=== PATIENT | female | born 1995 | race Caucasian/White ===

== ENCOUNTER 2017-04-24 14:40 | Emergency (ER) | payer OTHER ==
[~2017-04-24] VITALS: Ht 162.6 cm; Wt 97.9 kg
[2017-04-24 14:42] VITALS: Ht 162.6 cm; Wt 97.9 kg
[2017-04-24 17:00] LABS: BASOPHILS % 0.3 % (0.0-2.0); EOSINOPHILS # 0.1 10^3/ul (0.0-0.5); EOSINOPHILS % 1.4 % (0.0-7.0); HEMATOCRIT 40.1 % (37.0-47.0); HEMOGLOBIN 13.5 g/dl (12.0-16.0); LYMPHOCYTES % 13.5 % (15.0-51.0); MEAN CORPUSCULAR HEMOGLOBIN 28.4 pg (29.0-33.0); MEAN CORPUSCULAR HGB CONC 33.7 g/dl (32.0-37.0); MEAN CORPUSCULAR VOLUME 84.4 fl (82.0-101.0); MEAN PLATELET VOLUME 11.4 fl (7.4-10.4); MONOCYTE # 0.5 10^3/ul (0.3-0.9); MONOCYTES % 7.3 % (0.0-11.0); NEUTROPHIL # 5.5 10^3/ul (1.6-7.5); NEUTROPHILS % 77.2 % (39.0-77.0); PLATELET COUNT 173 10^3/UL (140-415); RED BLOOD COUNT 4.75 10^6/ul (4.20-5.40); RED CELL DISTRIBUTION WIDTH 14.6 % (11.5-14.5); WHITE BLOOD COUNT 7.2 10^3/ul (4.8-10.8)
[2017-04-24 17:05] LABS: ADD UMIC YES; UR ASCORBIC ACID NEGATIVE (NEGATIVE); UR BILIRUBIN (Dip) NEGATIVE (NEGATIVE); UR BLOOD (Dip) 3+ mg/dL (NEGATIVE); UR CLARITY CLEAR (CLEAR); UR COLOR YELLOW (YELLOW); UR GLUCOSE (Dip) NEGATIVE (NEGATIVE); UR KETONES (Dip) NEGATIVE (NEGATIVE); UR LEUKOCYTE ESTERASE (Dip) NEGATIVE Leu/ul (NEGATIVE); UR NITRITE (Dip) NEGATIVE (NEGATIVE); UR RBC > 182 /HPF (0-5); UR SPECIFIC GRAVITY (Dip) 1.017 (1.003-1.030); UR TOTAL PROTEIN (Dip) NEGATIVE (NEGATIVE); UR UROBILINOGEN (Dip) NEGATIVE (NEGATIVE)
[2017-04-24 17:21] LABS: ALBUMIN 4.1 g/dl (3.3-4.9); ALBUMIN/GLOBULIN RATIO 1.17; BILIRUBIN,INDIRECT 0.9 mg/dl (0-1.1); BILIRUBIN,TOTAL 0.9 mg/dl (0.2-1.3); CREATININE 0.68 mg/dl (0.44-1.00); TOTAL PROTEIN 7.6 g/dl (6.1-8.1)
--- NOTE | 2017-04-24 19:05 | RADRPT ---
PROCEDURE: CT of the abdomen and pelvis without contrast CLINICAL INDICATION: Abdominal pain TECHNIQUE: Spiral CT images through the abdomen and pelvis without the use of contrast. The admin istered radiation dose is CTDI 17.1 mGy and DLP 984.6 mGy*cm. Coronal and sagittal reformatted imag es were submitted. One or more of the following dose reduction techniques were used: automated expo sure control, adjustment of the mA and/or kV according to patient size, or use of iterative reconstr uction technique. DICOM images are available. COMPARISON: None FINDINGS: Lack of oral and intravenous contrast and streak artifact somewhat limits evaluation. The lung ba ses are clear. No pleural effusion is seen. The heart is normal in size. The liver, spleen, adrenal glands and pancreas are normal in appearance. There is no evidence of cho lelithiasis or biliary ductal dilatation. The kidneys are normal in size and contour. There is no ev idence of hydronephrosis or nephrolithiasis. The aorta is normal in caliber. . There is no evidenc e for bowel obstruction, free air, free fluid or abscess. The appendix is normal in appearance. Mu ltiple mildly enlarged mesenteric lymph nodes are seen. Mild stranding of the omentum on the right a nd a small amount of pelvic free fluid are seen. The uterus is anteverted. There is evidence of a le ft ovarian cystic teratoma measuring 4 x 3.3 cm. The bladder is decompressed. The osseous structure s are intact. Bilateral sacroiliac joints are narrowed and sclerotic.. IMPRESSION: Mesenteric lymphadenopathy and mild soft tissue infiltration of the right omentum. The etiology i s uncertain. Follow-up contrast enhanced exam is recommended. 4 4 cm left ovarian cystic teratoma. Mild pelvic free fluid. Ultrasound is recommended. RPTAT: HCNS Physician Jose Guadalupe Date Time Electronically viewed and signed by Physician Jose Guadalupe on 04/24/2017 19:05 /
--- NOTE | 2017-04-24 20:33 | RADRPT ---
PROCEDURE: US Non-OB Pelvis. CLINICAL INDICATION: Pelvic pain. TECHNIQUE: Multiple sonographic images of the pelvis were obtained utilizing a transabdominal and endovaginal technique. The images were reviewed on a PACS workstation. COMPARISON: CT of the abdomen and pelvis dated 04/24/2017. FINDINGS: The uterus is visualized and measures 9.5 x 5.1 x 7.5 cm. The endometrial echo complex is normal and measures 4 mm. The right ovary is not visualized. The left ovary measures 5.2 x 2.2 x 2.6 cm. There is a 4.6 x 3.5 x 3.9 cm complex structure in the left ovary, consistent with a teratoma. Blood flow is demonstrate d to the left ovary. No adnexal masses are noted. There is no evidence of free fluid. IMPRESSION: 1. 4.6 cm left ovarian teratoma. 2. Normal appearance of uterus. 3. The right ovary is not visualized. RPTAT: HTAR .Edouard Mosley MD, Date Time Electronically viewed and signed by .Edouard Mosley MD, MD on 04/24/2017 20:33 .R/
[2017-04-24] MEDS ORDERED: NAPR-260 PO (20:56)
--- NOTE | 2017-04-24 21:12 | ERD ---
ER Documentation Chief Complaint Chief Complaint AP X 6 WEEKS, INTERMITTENT HPI 21-year-old female complaining of abdominal pain 6 weeks. Patient states the pain is in the epigastric region. It comes and goes over the last 6 weeks and does not know what causes it resolves it. Describes it as a sharp type pain. Has normal bowel movements. Has normal urination. Denies vomiting. Denies chest pain. Denies shortness of breath. Has taken ibuprofen with alleviation of symptoms. Last normal menstrual period was 04/21/2017 ROS All systems reviewed and are negative except as per history of present illness. Medications Home Meds Active Scripts Naproxen* (Naprosyn*) 500 Mg Tablet, 500 MG PO BID Y for PAIN AND/OR INFLAMMATION, #30 TAB Prov:PRASHANTH GUERRA PA-C 04/24/17 Allergies Allergies: Coded Allergies: No Known Allergy (Unverified , 04/24/17) PMhx/Soc Medical and Surgical Hx: pt denies Medical Hx, pt denies Surgical Hx Hx Alcohol Use: No Hx Substance Use: No Hx Tobacco Use: No Smoking Status: Never smoker Physical Exam Vitals Vital Signs Date Time Temp Pulse Resp B/P Pulse Ox O2 Delivery O2 Flow Rate FiO2 04/24/17 14:42 98.1 78 18 115/56 99 Physical Exam GENERAL: The patient is well-appearing, well-nourished, in no acute distress HEENT: Atraumatic. Conjunctivae are pink. Pupils equal, round, and reactive to light. There is no scleral icterus. Tympanic membranes clear bilaterally. Oropharynx clear. No nystagmus or photophobia. NECK: C-spine is soft and supple. There is no meningismus. There is no cervical lymphadenopathy. CHEST: Clear to auscultation bilaterally. There are no rales, wheezes or rhonchi. HEART: Regular rate and rhythm. No murmurs, clicks, rubs or gallops. No S3 or S4. ABDOMEN: Normoactive bowel sounds. No distention. Mild tenderness palpation mid abdomen. No rebound tenderness. No rigidity. BACK: No midline or flank tenderness. Result Diagram: 04/24/17 1650 04/24/17 1650 Results 24 hrs Laboratory Tests Test 04/24/17 16:50 White Blood Count 7.210^3/ul Red Blood Count 4.7510^6/ul Hemoglobin 13.5g/dl Hematocrit 40.1% Mean Corpuscular Volume 84.4fl Mean Corpuscular Hemoglobin 28.4pg Mean Corpuscular Hemoglobin Concent 33.7g/dl Red Cell Distribution Width 14.6% Platelet Count 65631^3/UL Mean Platelet Volume 11.4fl Neutrophils % 77.2% Lymphocytes % 13.5% Monocytes % 7.3% Eosinophils % 1.4% Basophils % 0.3% Nucleated Red Blood Cells % 0.0/100WBC Neutrophils # 5.510^3/ul Lymphocytes # 1.010^3/ul Monocytes # 0.510^3/ul Eosinophils # 0.110^3/ul Basophils # 0.010^3/ul Nucleated Red Blood Cells # 0.010^3/ul Urine Color YELLOW Urine Clarity CLEAR Urine pH 5.0 Urine Specific [place] 1.017 Urine Ketones NEGATIVEmg/dL Urine Nitrite NEGATIVEmg/dL Urine Bilirubin NEGATIVEmg/dL Urine Urobilinogen NEGATIVEmg/dL Urine Leukocyte Esterase NEGATIVELeu/ul Urine Microscopic RBC > 182/HPF Urine Microscopic WBC 0/HPF Urine Hemoglobin 3+mg/dL Urine Glucose NEGATIVEmg/dL Urine Total Protein NEGATIVEmg/dl Sodium Level 142mmol/L Potassium Level 4.0mmol/L Chloride Level 104mmol/L Carbon Dioxide Level 27mmol/L Anion Gap 15 Blood Urea Nitrogen 16mg/dl Creatinine 0.68mg/dl Glucose Level 94mg/dl Calcium Level 9.0mg/dl Total Bilirubin 0.9mg/dl Direct Bilirubin 0.00mg/dl Indirect Bilirubin 0.9mg/dl Aspartate Amino Transf (AST/SGOT) 26IU/L Alanine Aminotransferase (ALT/SGPT) 42IU/L Alkaline Phosphatase 71IU/L Total Protein 7.6g/dl Albumin 4.1g/dl Globulin 3.50g/dl Albumin/Globulin Ratio 1.17 Lipase 36U/L Serum HCG, Qualitative NEGATIVE Procedures/MDM DIAGNOSTIC IMAGING REPORT Patient: ANNE AUGUSTIN : 1995 Age: 21 Sex: F MR #: [id number] DOS: 04/24/171915 Ordering MD: RODOLFO GUERRA PA-C Location: [facility] Room/Bed: PROCEDURE: US Non-OB Pelvis. CLINICAL INDICATION: Pelvic pain. TECHNIQUE: Multiple sonographic images of the pelvis were obtained utilizing a transabdominal and endovaginal technique. The images were reviewed on a PACS workstation. COMPARISON: CT of the abdomen and pelvis dated 04/24/2017. FINDINGS: The uterus is visualized and measures 9.5 x 5.1 x 7.5 cm. The endometrial echo complex is normal and measures 4 mm. The right ovary is not visualized. The left ovary measures 5.2 x 2.2 x 2.6 cm. There is a 4.6 x 3.5 x 3.9 cm complex structure in the left ovary, consistent with a teratoma. Blood flow is demonstrated to the left ovary. No adnexal masses are noted. There is no evidence of free fluid. IMPRESSION: 1. 4.6 cm left ovarian teratoma. 2. Normal appearance of uterus. 3. The right ovary is not visualized. DIAGNOSTIC IMAGING REPORT Patient: ANNE AUGUSTIN : 1995 Age: 21 Sex: F MR #: [id number] DOS: 04/24/17 1631 Ordering MD: RODOLFO GUERRA PA-C Location: [facility] Room/Bed: PROCEDURE: CT of the abdomen and pelvis without contrast CLINICAL INDICATION: Abdominal pain TECHNIQUE: Spiral CT images through the abdomen and pelvis without the use of contrast. The administered radiation dose is CTDI 17.1 mGy and DLP 984.6 mGy* cm. Coronal and sagittal reformatted images were submitted. One or more of the following dose reduction techniques were used: automated exposure control, adjustment of the mA and/or kV according to patient size, or use of iterative reconstruction technique. DICOM images are available. COMPARISON: None FINDINGS: Lack of oral and intravenous contrast and streak artifact somewhat limits evaluation. The lung bases are clear. No pleural effusion is seen. The heart is normal in size. The liver, spleen, adrenal glands and pancreas are normal in appearance. There is no evidence of cholelithiasis or biliary ductal dilatation. The kidneys are normal in size and contour. There is no evidence of hydronephrosis or nephrolithiasis. The aorta is normal in caliber. . There is no evidence for bowel obstruction, free air, free fluid or abscess. The appendix is normal in appearance. Multiple mildly enlarged mesenteric lymph nodes are seen. Mild stranding of the omentum on the right and a small amount of pelvic free fluid are seen. The uterus is anteverted. There is evidence of a left ovarian cystic teratoma measuring 4 x 3.3 cm. The bladder is decompressed. The osseous structures are intact. Bilateral sacroiliac joints are narrowed and sclerotic.. IMPRESSION: Mesenteric lymphadenopathy and mild soft tissue infiltration of the right omentum. The etiology is uncertain. Follow-up contrast enhanced exam is recommended. 4 4 cm left ovarian cystic teratoma. Mild pelvic free fluid. Ultrasound is recommended. MDM: 21-year-old female complaining of abdominal pain. I have low suspicion for choledocholithiasis, cholecystitis, cholangitis, pancreatitis. I have low suspicion for bowel obstruction. I have low suspicion for ovarian torsion or ovarian abscess. I have low suspicion for appendicitis. Patient does have a teratoma seen on the left ovary which may be causing pain. Patient was discharged with pain medication and recommend follow-up with primary care within 1-2 days for close evaluation. Patient is discharged with strict ER precautions. All questions answered at discharge. Departure Diagnosis: Primary Impression: Teratoma Condition: Stable Patient Instructions: Pelvic Pain, Unknown Cause Referrals: [facility] [place] [id number] [facility] [address] [place] [address] OFFICE FAX [facility] [address] [place] [place] [id number] [address] [place] [address] MARIANA NATH [address] [facility] [facility] [address] [address] [address] [place] [address] [facility] [address] [place] [address] [id number] [address] [place] [address] [facility] [id number] [place] [address] [facility] [address], [place] [address] [address], [facility] [address] [place] [address] [facility] Hours: 8:00 am - 5:00 pm Additional Instructions: FOLLOW UP WITH YOUR PRIMARY CARE PHYSICIAN TOMORROW.Return to this facility if you are not improving as expected. PRASHANTH GUERRA PA-C Apr 24, 2017 21:12
== END 2017-04-24 21:49 | disposition home or self-care (01) ==
LOC: FTE 14:40
DX: D27.1 Benign neoplasm of left ovary (principal)
CPT/HCPCS: 36415; 74176; 76830; 76856; 80053; 81001; 83690; 84703; 85025; Z7502